=== PATIENT | male | born 1955 | race Caucasian/White ===

== ENCOUNTER → 2018-03-20 16:49 | Outpatient (CLI) | payer OTHER, SELFPAY ==
[2018-03-20 12:36] LABS: Hematocrit 45.3 % (40-54); Mean Corp Hgb Conc 33.1 g/gl (32-36); Mean Corpuscular Hgb 28.1 pg (27.0-32.0); Mean Platelet Vol. 11.1 fl (6.2-12.0); Platelet Count 191 K/mm3 (150-450); RBC Distribution Width CV 13.4 % (11.6-14.6); RBC Distribution Width SD 41.3 fl (35.1-43.9); Red Blood Count 5.33 M/mm3 (4.6-6.2); White Blood Count 5.9 K/mm3 (4.4-11.0)
[2018-03-20 12:40] LABS: Scan Indicated on CBC? Y/N NO
[2018-03-20 13:18] LABS: Anion Gap 6 (5-15); BUN 22 mg/dL (7-18); BUN/Creat Ratio 18.5 RATIO (10-20); Calcium,Total 9.8 mg/dL (8.5-10.1); Chloride 102 mmol/L (98-107); Creatinine, Serum 1.19 mg/dL (0.70-1.30); EST Glomerular Filtration Rate 65 mL/min (>60); Est Glom Filt Rate - Afr Amer 79 mL/min (>60); Glucose 177 mg/dL (74-106); Potassium 4.4 mmol/L (3.5-5.1); Sodium Level 138 mmol/L (136-145)
[2018-03-21 10:38] LABS: Hemoglobin A1c 8.8 % (4.2-6.3)
== END ==
PROVIDERS: Family Provider Family Medicine; PCP Family Medicine; Visit Provider Orthopaedic Surgery
DX: Z01.810 Encounter for preprocedural cardiovascular examination (principal); Z01.818 Encounter for other preprocedural examination
CPT/HCPCS: 36415; 80048; 83036; 85027; 93005

== ENCOUNTER 2018-03-23 08:49 | Day surgery (SDC) | payer OTHER, SELFPAY ==
[2018-03-23] VITALS (8 sets, daily range): BP systolic 150–183; BP diastolic 66–99; PULSE 82–108; RESP 16–18; TEMP 36.2–36.6; O2SAT 92–97; BMI 38.6
[2018-03-23 09:50] LABS: Bedside Glucose 174 mg/dL (70-110)
--- NOTE | 2018-03-23 11:51 | PCM.DC.ORTHO ---
Discharge Diet: No Restrictions Discharge Activity: May Not Drive May shower in (days): 1 Ice area for (Minutes): 20 - Ice area for 20 minutes each hour while awake Keep extremity elevated above heart level: Operative Extremity, Left Arm Call your doctor if your incision/area has: Continuous Slow Oozing, Sudden Increased Bleeding, Increased Pain/ Swelling, Increased Redness, Foul Smelling Discharge Call your doctor if you observe: Fever of 101 or Higher, Coldness, Increased Pain, Numbness or Tingling, Change in Color Suture Line Care: Avoid Pulling/Pushing Cleanse incision/area with: Keep Dressing Clean & Dry Allergies/Adverse Reactions: Allergies No Known Allergies Allergy (Verified 03/21/18 08:54) Medications to take at Discharge Ascorbic Acid [Vitamin C] 1,000 mg PO QODAY 03/21/18 Atorvastatin Calcium [Lipitor] 40 mg PO DAILY 03/21/18 Calcium Carbonate [Calcium] 500 mg PO QODAY 03/21/18 Cholecalciferol (Vitamin D3) [Vitamin D3] 1,000 unit PO DAILY 03/21/18 Insulin Aspart [Novolog Flexpen] 20 units SC TIDCM 03/21/18 Insulin Detemir [Levemir Flextouch] 30 unit SQ QHS 03/21/18 Metformin HCl 1,000 mg PO BID 03/21/18 Multivit-Min/FA/Lycopen/Lutein [Centrum Silver Tablet] 1 each PO DAILY 03/21/18 Zinc 50 mg PO QODAY 03/21/18 traMADol [Ultram] 1 - 2 tab PO Q6H PRN PRN 03/21/18 Test Results: Test results from this visit will be discussed in further detail at your follow-up appointment, if applicable. Please Follow Up With: Valdo Tariq PA-C When: 2 weeks
--- NOTE | 2018-03-23 11:53 | PCM.OPRPT ---
Report of Operation Date of Procedure: 03/23/18 Pre-Operative Diagnosis: Comminuted radial head and neck fracture left Post-Operative Diagnosis: Same Surgery/Procedure Performed:: Radial head arthroplasty left Description of Surgical Findings:: Comminuted displaced radial head and neck fracture cyber workforce developer and manager: Valdo Tariq Type of Anesthesia:: General Anesthesiologist: Sherwin Han Specimen's removed: bone Estimated Blood Loss (mL): 25 Fluids Replaced: See anesthesia report Description of Procedure: Implants: Biomet size 24-14 modular radial head replacement with the size 8 press-fit stem Surgical indications: Jose is a 62-year-old male that had sustained a radial head and neck fracture from a fall. He has previously had surgery on this radial head before. Preoperative CT scan was obtained which did confirm the presence of a displaced comminuted radial head and neck fracture Procedure description: Jose was greeted in the preoperative area. His left upper extremity was marked with surgical marker. Preoperative antibiotics were administered. Patient was then taken or [address] the stable condition. After adequate anesthesia was obtained and airway secured a well-padded tourniquet was placed on patient's left upper extremity. The arm was then prepped draped in usual sterile fashion. Surgical times performed surgery was commenced. Patient's previous incision site was utilized overlying the lateral aspect of the elbow. I typically perform a more posterior of incision however because the presence of the previous incision I did utilize this. Full-thickness flaps were then created exposing the common extensor tendon. A splitting approach of the ERCB was then performed from the radial neck to the lateral epicondyle. The radial collateral ligament was intact and I did dissect the attachment of the ERCP anteriorly exposing the radial capitellar joint. Hematoma was immediately identified and severely comminuted displaced radial head fracture was noted. The head which did appear to be maintained somewhat normal anatomy. I did measure a resection of approximately 12 mm from the anatomic height of the radial head and a sagittal saw was utilized to make this resection. The head was then measured on the back table and determined to require the largest radial head replacement available size 24. Once this was completed the form was maintained in a pronated position in order to protect the posterior interosseous nerve. No retractors were placed anterior to the radial neck. A Hohmann was placed posteriorly to deliver the radius laterally and the canal was prepared with a starting awl followed by sequential broaching to a size 8 size 9 could not be placed as it was too large. This was then trialed with the size 8 stem and a +14 radial head size 24 and fluoroscopic imaging was utilized to ensure that this was not overstuffed. The height was approximately 2 mm shorter than ulnohumeral joint. There is some slight posterior subluxation on the lateral I did attempt a size 16 however this was too large in terms of tightening the radiocapitellar joint. This was removed and the wound was irrigated. Upon inspection of the elbow joint further patient did have an osteochondral lesion of the capitellum which is approximately 5 mm in diameter. There is also a minimally displaced fracture of the coronoid process. This did not appear to affect the modular components were then press-fit in a standard fashion the set screw was placed and tightened. The wound was once again irrigated. Annular ligament was then closed in a separate plane with interrupted 0 Vicryl followed by interrupted closure of the ERCB using 0 Vicryl. Subcutaneous tissue was closed followed by surgical deepali placed in the skin. Patient was placed in a posterior splint which was well-padded and well molded. He was taken to the recovery room in stable condition. Physician research study assistant was integral in all portions of this procedure. They assisted with positioning the patient, draping the extremity, holding retractors, closing the wound, and applying the dressing. This was all done under my direct supervision. The physician research study assistant was essential for a successful, efficient surgery. Postoperatively: Patient will maintain the splint for approximately 12 days. He is able to start active range of motion activities at that time no progressive resistance exercises 6 weeks - Complications None known - Admit VTE Documentation VTE Present on Admission: Yes VTE Mechan Device Prophylaxis: SCD's, Thigh High JERROD Hose VTE Pharm Prophylaxis ordered?: Yes
[2018-03-23] MEDS: Cefazolin 2 GM in 0.9% Normal Saline 100 ML IV (11:55)
[2018-03-23] MEDS: Bupivacaine 0.5% PF 10 ML VIAL (13:11)
[2018-03-23 14:30] LABS: Bedside Glucose 198 mg/dL (70-110)
== END 2018-03-23 15:59 | disposition home or self-care (01) ==
LOC: SDC 08:50 → AC 08:50
PROVIDERS: Family Provider Family Medicine; PCP Family Medicine; Visit Provider Orthopaedic Surgery
PROC: (CPT 24365; principal; 2018-03-23 10:40)
DX: S52.122A Displaced fracture of head of left radius, initial encounter for closed fracture (principal); S52.132A Displaced fracture of neck of left radius, initial encounter for closed fracture; E66.3 Overweight; E11.9 Type 2 diabetes mellitus without complications; Z68.39 Body mass index [BMI] 39.0-39.9, adult; W19.XXXA Unspecified fall, initial encounter; Y93.9 Activity, unspecified; Y92.89 Other specified places as the place of occurrence of the external cause; Y99.9 Unspecified external cause status; E78.00 Pure hypercholesterolemia, unspecified; Z85.828 Personal history of other malignant neoplasm of skin
CPT/HCPCS: 01740; 24365; 73070; 76000; 82962; C1776; J7120; J2405